=== PATIENT | female | born 1955 | race Caucasian/White ===

== ENCOUNTER 2020-10-27 14:00 | Emergency (ER) | payer BC ==
[~2020-10-27] VITALS: Ht 160 cm; Wt 81.4 kg
[2020-10-27] MEDS ORDERED: SERTRALINE HCL100 MG PO (14:17)
[2020-10-27] MEDS ORDERED: MELOXICAM15 MG PO (14:18)
[2020-10-27] MEDS ORDERED: LOVASTATIN10 MG PO (14:18)
[2020-10-27] MEDS ORDERED: OMEPRAZOLE20 M1 PO (14:19)
[2020-10-27] MEDS ORDERED: ALLERGY NA50 MCG/ACT NAB (14:20)
[2020-10-27] MEDS ORDERED: KETOCONAZOLE2 % EX (14:21)
[2020-10-27] MEDS ORDERED: LEVOTHYROXIN50 MCG PO (14:22)
[2020-10-27] MEDS ORDERED: ULTRAM50 MG PO (14:56)
[2020-10-27 15:00] VITALS: BP 158/84
== END 2020-10-27 15:10 | disposition home or self-care (01) | DRG 563 ==
LOC: ED 14:00
DX: S93.402A Sprain of unspecified ligament of left ankle, initial encounter (principal); S39.011A Strain of muscle, fascia and tendon of abdomen, initial encounter; E03.9 Hypothyroidism, unspecified; R73.03 Prediabetes; W01.0XXA Fall on same level from slipping, tripping and stumbling without subsequent striking against object, initial encounter; Y92.000 Kitchen of unspecified non-institutional (private) residence as the place of occurrence of the external cause; Z96.643 Presence of artificial hip joint, bilateral